=== PATIENT | male | born 1975 | race Caucasian/White ===

== ENCOUNTER 2021-10-22 15:07 | Emergency (ER) | payer OTHER, SELFPAY ==
--- NOTE | 2021-10-22 16:36 | ED.NAVMDI ---
HPI - Nausea/Vomiting/Diarrhea General Chief complaint: Upper Respiratory Symptoms Stated complaint: Vomiting/body aches Time Seen by Provider: 10/22/21 16:02 Source: patient Mode of arrival: ambulatory Limitations: no limitations History of Present Illness HPI Narrative: 46 y/o male presents to the ER with 1 day of chills, body aches, nausea and sore throat. He had one episode of vomiting today and feels weak. He reports pain with swallowing. No cough, SOB, chest pain, abdominal pain, or diarrhea. No known sick contacts. He is not vaccinated for COVID or flu. MD elicited complaint: nausea and vomiting Onset (ago): day(s) (1) Description of vomiting: food contents Associated nausea: Yes Associated abdominal pain: No Location of pain: none Pain consistency: intermittent Severity: moderate Exacerbating factors: none Relieving factors: none Associated symptoms: myalgias, fever/chills, headaches, loss of appetite, malaise, nausea/vomiting and weakness Related Data Previous Rx's Medication Instructions Recorded amoxicillin 500 mg tablet 500 mg PO BID #20 tab 10/22/21 Allergies Allergy/AdvReac Type Severity Reaction Status Date / Time No Known Allergies Allergy Verified 10/22/21 16:37 Review of Systems Review of Systems: Constitutional: + Fever, + Chills ENT/Mouth: + sore throat, No Rhinorrhea, No Swallowing Difficulty Eyes: No Eye Pain, No Swelling, No Redness Cardiovascular: No Chest Pain, No SOB Respiratory: No Cough, No Sputum, No Wheezing, No dyspnea Gastrointestinal: +Nausea, + Vomiting, No Diarrhea, No abdominal Pain Genitourinary: No Dysuria Musculoskeletal: No joint pain, + Myalgias Skin: No Skin Lesions, No rash Neuro: + Weakness, No Numbness, No Dizziness, + Headache Heme/Lymph: No Bruising, No Lymphadenopathy Gastrointestinal: Gastrointestinal: Reports nausea PMFSH Past Medical History Medical History (Updated 10/22/21 @ 17:14 by STEVEN Yuen) No known health problems Social History Social History Advance Directives: No Advance Directives Information Provided: No Physical Exam Vital Signs: Vital Signs: Last Vital Signs Temp 99.6 F 10/22/21 17:30 Pulse 98 10/22/21 17:30 Resp 17 10/22/21 17:30 BP 143/71 H 10/22/21 17:30 Pulse Ox 97 10/22/21 17:30 BMI result Body Mass Index 24.2 Appearance: Alert. Oriented X3. No acute distress. Eyes: Pupils equal, round and reactive to light. ENT: Pharynx with moist mucus membranes. Tonsils are enlarged, erythematous bilaterally with diffuse exudates in left tonsil. Uvula midline. Normal voice and handling secretions normally. Neck: Normal inspection. Neck supple. No LAD CVS: Normal heart rate and rhythm. Pulses normal. Respiratory: No respiratory distress. Breath sounds normal. Abdomen: Soft and nontender. +BS x4 Skin: Skin warm and dry. Normal skin color. Normal skin turgor. No rashes. Extremities: Normal inspection x4 Neuro: Oriented X 3, grossly normal, nonfocal Course Course Course Narrative: 47-year-old male presents to the ER with 1 day of sore throat, body aches, chills, headaches and 1 episode of vomiting today. He is febrile to 101.9 on arrival. His exam shows tonsillar exudates and swelling, possible strep throat. Will get strep, COVID, flu swabs. Motrin ordered and he is tolerating Jell-O and apple juice. Reevaluation(s) Reevaluation #1: COVID and Flu negative. Unable to run Strep test per lab however given his examination will empirically treat with amoxicillin. Stable for d/c home with PO abx and supportive care. Patient counseled and agrees with plan. MDM - Nausea/Vomiting/Diarrhea Lab Data Labs: Lab Results 10/22/21 10/22/21 10/22/21 Range/Units 16:45 16:45 16:45 COVID-19 ([facility]) Negative (Negative) COVID-19 Clin Com See Note Influenza Type A ([facility]) Negative (Negative) Influenza Type B ([facility]) Negative (Negative) Influenza A & B Note See Note S. pyogenes GrpA [facility] Cancelled Critical Care Time Critical Care Time Critical Care Time: No Discharge Plan Discharge Clinical Impression: Strep pharyngitis Patient Disposition: Home, Self-Care Instructions: Strep Throat (DC) Additional Instructions: Take the prescribed antibiotic as directed for 10 days for Strep throat. You were negative for Flu and COVID Use warm salt water gargles several times per day Recommend over the counter Chloraseptic spray or Cepacol lozenges to help with sore throat Take motrin and/or tylenol as needed for body aches and fevers Rest and drink plenty of fluids Follow up with your doctor as needed. If you develop new or worsening symptoms call 911 or come back to the ER for further evaluation. Prescriptions: New amoxicillin 500 mg tablet 500 mg PO BID Qty: 20 0RF
[2021-10-22 16:39] VITALS: BP 138/77; PULSE 99; RESP 16; TEMP 38.8; O2SAT 98; BMI 24.2
[2021-10-22] MEDS: Ibuprofen 600 MG TABLET PO (16:43)
[2021-10-22 17:17] LABS: COVID-19 Test Negative (Negative); IDNOW Serial# 16C4AD1C
[2021-10-22 17:21] LABS: IDNOW Serial# 55D5AD1C; Influenza A Negative (Negative); Influenza B2 Negative (Negative)
[2021-10-22 17:30] VITALS: BP 143/71; PULSE 98; RESP 17; TEMP 37.6; O2SAT 97
== END 2021-10-22 17:44 | disposition home or self-care (01) ==
PROVIDERS: Physician Assistant; Emergency Provider Internal Medicine
DX: J02.0 Streptococcal pharyngitis (principal); Z20.822 Contact with and (suspected) exposure to COVID-19; R50.9 Fever, unspecified
CPT/HCPCS: 87502; 87635; 87651; 99283